=== PATIENT | female | born 1980 | race Caucasian/White ===

== ENCOUNTER → 2018-06-07 08:58 | Outpatient (CLI) | payer OTHER, SELFPAY ==
--- NOTE | 2018-06-07 09:07 | US_ITS ---
US gallbladder COMPARISON: None available HISTORY:Chest pain and back pain Sagittal, transverse and decubitus imaging of the gallbladder was performed. GALLBLADDER -the gallbladder is normal in size and no definite gallstones are seen. There is a small amount biliary sludge near the neck of the gallbladder. The gallbladder wall is normal thickness. The liver is normal size and shows overall increased echogenicity suggesting mild diffuse fatty infiltration. The portal vein is normal caliber. Right kidney measures 10.6 x 4.4 x 5.9 cm and appears sonographically normal. The pancreas appears normal. . IMPRESSION: Mild diffuse hepatic steatosis along with biliary sludge, no definite gallstones identified
[2018-06-07 09:17] LABS: Basophils % 0.6 % (0.1-2.0); Eosinophils # 0.2 K/mm3 (0.0-0.4); Hematocrit 44.3 % (37.0-47.0); Lymphocytes % 29.9 % (10-50); Mean Corpuscular HGB Conc 31.6 g/dL (31.8-35.4); Mean Corpuscular Hemoglobin 30.9 pg (27.0-31.2); Mean Corpuscular Volume 97.8 fl (81-99); Mean Platelet Volume 7.4 fl (7.4-10.4); Monocytes # 0.4 K/mm3 (0.1-1.0); Monocytes % 5.8 % (1.7-9.3); Neutrophils # 4.1 K/mm3 (1.8-7.8); Neutrophils % 60.8 % (37.0-80.0); Platelet Count 269 K/mm3 (142-424); Red Blood Count 4.53 M/mm3 (4.20-5.40); Red Cell Distribution Width 12.6 % (11.5-17.5); White Blood Count 6.7 K/mm3 (4.8-10.8)
[2018-06-07 09:19] LABS: Alanine Aminotransferase 26 U/L (12-78); Albumin Level 3.7 gm/dL (3.4-5.0); Albumin/Globulin Ratio 0.9 (1.1-1.8); Alkaline Phosphatase 52 U/L (46-116); Amylase 38 U/L (25-115); Anion Gap 11.3 mEq/L (5-15); Aspartate Amino Transferase 10 U/L (15-37); Bilirubin,Total 0.4 mg/dL (0.2-1.0); Blood Urea Nitrogen 19 mg/dL (7-18); Calcium 8.7 mg/dL (8.5-10.1); Carbon Dioxide 28 mmol/L (21.0-32.0); Chloride 104 mmol/L (98-107); Creatinine,Serum 0.93 mg/dL (0.55-1.02); Estimated Glomerular Filt Rate 69 ml/min (>60); GFR (African American) 83 ML/MIN (>60); Glucose 102 mg/dL (74-106); Lipase 90 u/L (73-393); Potassium 4.3 mmoL/L (3.5-5.1); Sodium 139 mmol/L (136-145); Total Protein,Serum 7.7 gm/dL (6.4-8.2)
== END ==
PROVIDERS: Visit Provider Physician Assistant
DX: R07.9 Chest pain, unspecified (principal); R10.9 Unspecified abdominal pain
CPT/HCPCS: 36415; 76705; 80053; 82150; 83690; 85025

== ENCOUNTER → 2018-06-11 12:18 | Outpatient (CLI) | payer OTHER, SELFPAY ==
--- NOTE | 2018-06-11 12:21 | NM_ITS ---
NM hepatobiliary wo pharm HISTORY: ITS.REASON: right upper quad pain/chest pain ORDERING PHYSICIAN: Luis Manuel Angel MD PATIENT AGE: 37 years COMPARISON: None DOSE: 8.45 mCi technique: Fatty meal with ensure. No pain reported with fatty meal. FINDINGS: Homogeneous activity is present within the hepatic parenchyma. Activity is present in the gallbladder by 60 minutes. Activity is present in the small bowel by 30 minutes. The gallbladder ejection fraction is calculated to be 14 % The patient did not report pain or other symptoms during the fatty meal. IMPRESSION: 1. No evidence of cystic or common duct obstruction. 2. Low gallbladder ejection fraction of 14%. 3. Slight delay in gallbladder visualization. This could be seen with chronic inflammatory changes of the cystic duct. Correlation with clinical parameters needed.
== END ==
PROVIDERS: PCP Family Medicine; Visit Provider Surgery
DX: R10.11 Right upper quadrant pain (principal); R07.9 Chest pain, unspecified
CPT/HCPCS: 78226; A9537

== ENCOUNTER → 2019-01-24 10:50 | Outpatient (CLI) | payer OTHER, SELFPAY ==
--- NOTE | 2019-01-24 10:51 | US_ITS ---
PROCEDURE: US BREAST RT COMPLETE CLINICAL INDICATION: US Right Breast- Lump COMPARISON: No exams were available for comparison FINDINGS: Palpable areas reported at 10 o'clock. General survey is performed of the right breast. A hypoechoic nodule is present at 8 o'clock at 4 mm suggesting a cyst. At 9 o'clock there is a tubular 8 x 3 mm cystic area. No nodule evident that would correspond to the area of palpable concern. 2 cm node is present in the right axilla. IMPRESSION: No sonographic abnormality detected at the area of palpable concern. Probable cysts at 8 o'clock and 9 o'clock. If there indeed a palpable nodule then, mammogram may be of further value Dictated by: Delmar Aroryo MD 01/31/2019 18:52 Signed by: <Electronically signed by Delmar Arroyo MD in [place]> 01/31/2019 18:52
== END ==
PROVIDERS: PCP Family Medicine; Visit Provider Nurse Practitioner Obstetrics & Gynecology
DX: N63.10 Unspecified lump in the right breast, unspecified quadrant (principal)
CPT/HCPCS: 76641

== ENCOUNTER → 2019-06-13 10:36 | Outpatient (CLI) | payer OTHER, SELFPAY ==
--- NOTE | 2019-06-13 10:44 | XR_ITS ---
PROCEDURE: XR CHEST 2V CLINICAL HISTORY: short of breath COMPARISON: No exams were available for comparison FINDINGS: The cardiomediastinal silhouette and pulmonary vascularity are within normal limits. There is some patchy infiltrate in the right perihilar region. There is a four mm nodular opacity in the left upper lobe medially overlying the medial aspect of the left 5th rib. This may be due to a granuloma. Stability may be confirmed with follow-up. No acute bony abnormalities. IMPRESSION: Right perihilar infiltrate. 4 mm left upper lobe nodule. Follow-up suggested to confirm stability Dictated by: Delmar Arroyo MD 06/13/2019 17:08 Electronically signed by Delmar Arroyo MD in [place] 06/13/2019 17:08
== END ==
PROVIDERS: PCP Family Medicine; Visit Provider Urology
DX: R06.02 Shortness of breath (principal)
CPT/HCPCS: 71046

== ENCOUNTER → 2019-07-20 14:06 | Outpatient (CLI) | payer OTHER, SELFPAY ==
--- NOTE | 2019-07-20 14:13 | XR_ITS ---
PROCEDURE: XR CHEST 2V CLINICAL HISTORY: pulmonary nodule COMPARISON: XR CHEST 2V from 06/13/2019 FINDINGS: The cardiomediastinal silhouette and pulmonary vascularity are within normal limits. The lungs are clear without infiltrates, suspicious nodules, or pleural effusions. There is a stable appearing nodular density in the medial aspect of left upper lobe probably related to a granuloma unchanged. No acute bony anomaly. IMPRESSION: No change with no acute finding Dictated by: Delmar Arroyo MD 07/20/2019 15:27 Electronically signed by Delmar Arroyo MD in [place] 07/20/2019 15:27
== END ==
PROVIDERS: PCP Family Medicine; Visit Provider Urology
DX: R91.1 Solitary pulmonary nodule (principal)
CPT/HCPCS: 71046

== ENCOUNTER 2019-07-26 02:40 | Observation (INO) ==
[2019-07-26 03:03] LABS: Microscopic, Urine URINE MICROSCOPIC (MICROSCOPIC)
[2019-07-26 03:05] LABS: Appearance,Urine CLEAR (Clear); Bilirubin,Urine Negative (Negative); Blood, Urine 1+ (Negative); Color,Urine YELLOW (Yellow); Glucose,Urine (UA) Negative (Negative); Ketones,Urine Negative (Negative); Leukocyte Esterase,Urine Negative (Negative); Protein,Urine Negative (Negative); Specific Gravity, Urine 1.025 (1.005-1.030); Urobilinogen,Urine 0.2 EU/dl (0.2)
[2019-07-26 03:13] LABS: Basophils % 0.4 % (0.1-2.0); Eosinophils # 0.2 K/mm3 (0.0-0.4); Eosinophils % 1.8 % (0.1-12.0); Hematocrit 42.7 % (37.0-47.0); Hemoglobin 14.3 g/dL (12.2-16.2); Lymphocytes # 1.8 K/mm3 (0.7-4.5); Lymphocytes % 17.9 % (10-50); Mean Corpuscular HGB Conc 33.5 g/dL (31.8-35.4); Mean Corpuscular Volume 96.2 fl (81-99); Monocytes # 0.4 K/mm3 (0.1-1.0); Monocytes % 3.8 % (1.7-9.3); Neutrophils # 7.4 K/mm3 (1.8-7.8); Platelet Count 282 K/mm3 (142-424); Red Blood Count 4.44 M/mm3 (4.20-5.40); Red Cell Distribution Width 12.6 % (11.5-17.5); White Blood Count 9.8 K/mm3 (4.8-10.8)
[2019-07-26 03:31] LABS: Albumin/Globulin Ratio 1.1 (1.1-1.8); Anion Gap 13.2 mEq/L (5-15); Bilirubin,Total 0.5 mg/dL (0.2-1.0); C-Reactive Protein 0.5 mg/dL (0.0-0.9); Globulin 3.6 gm/dl (1.3-3.2); Total Protein,Serum 7.6 g/dL (6.4-8.2)
[2019-07-26 03:47] LABS: Erythrocyte Sedimentation Rate 17 mm/hr (0-20)
[2019-07-26 03:58] LABS: Amorphous Sediment,Urine 1+ /lpf; Bacteria,Urine 1+ /lpf
--- NOTE | 2019-07-26 04:18 | Emergency Department Note ---
ED Disposition Clinical Impression: Cholecystitis Disposition: Admitted as Observation Condition on Discharge: Good - Critical Care Critical Care Time: No Attestation: On 07/26/19, the high probability of a clinically significant, sudden or life threatening deterioration of the following system(s) required my full and direct attention, intervention and personal management. The time I documented below is in addition to time spent performing reported procedures but includes the following listed in this critical care notation. Medical Decision Making - Medical Records Medical records reviewed: Yes: I reviewed the patient's medical records. - Radames Inquiry Pt receiving controlled substance: No Vital Signs: 07/26/19 02:53 07/26/19 05:40 Temperature 98.1 F Temperature Source Oral Pulse Rate [Right] 90 71 Respiratory Rate 16 Blood Pressure [Right Arm] 146/70 H 105/63 L Blood Pressure Mean [Right Arm] 95 77 Blood Pressure Source [Right Arm] Automatic Cuff Automatic Cuff Blood Pressure Position [Right Arm] Sitting Sitting 02 Sat by Pulse Oximetry 95 99 Oxygen Delivery Method Room Air - Lab Data Lab results reviewed: Yes: I reviewed the patient's lab results. Lab Results 07/26/19 02:46: Urine Color Yellow, Urine Appearance Clear, Urine pH 7.0, Ur Specific [place] 1.025, Urine Protein Negative, Urine Glucose (UA) Negative, Urine Ketones Negative, Urine Blood 1+, Urine Nitrate Negative, Urine Bilirubin Negative, Urine Urobilinogen 0.2, Ur Leukocyte Esterase Negative, Urine RBC 5-10, Urine WBC 3-5, Ur Squamous Epith Cells 5-10, Amorphous Sediment 1+, Urine Bacteria 1+ 07/26/19 02:46: Urine HCG, Qual Negative 07/26/19 03:05: WBC 9.8, RBC 4.44, Hgb 14.3, Hct 42.7, MCV 96.2, MCH 32.2 H, MCHC 33.5, RDW 12.6, Plt Count 282, MPV 8.0, Neut % (Auto) 76.0, Lymph % (Auto) 17.9, [place] % (Auto) 3.8, Eos % (Auto) 1.8, Baso % (Auto) 0.4, Neut # (Auto) 7.4, Lymph # (Auto) 1.8, [place] # (Auto) 0.4, Eos # (Auto) 0.2, Baso # (Auto) 0.0, ESR 17 07/26/19 03:05: Sodium 143, Potassium 4.2, Chloride 108 H, Carbon Dioxide 26, Anion Gap 13.2, BUN 16, Creatinine 0.92, Estimated Creat Clear 128, Estimated GFR 69, Est GFR ( Amer) 84, Glucose 111 H, Calcium 9.0, Total Bilirubin 0.5, AST 8 L, ALT 22, Alkaline Phosphatase 50, C-Reactive Protein 0.5, Total Protein 7.6, Albumin 4.0, Globulin 3.6 H, Albumin/Globulin Ratio 1.1, Amylase 34, Lipase 76 07/26/19 03:05: Lactate 1.1 Result diagrams: 07/26/19 03:05 07/26/19 03:05 Orders (Tests/Meds): ED MEDICATIONS Generic Name Dose Route Start Last Admin Trade Name Bulmaro PRN Reason Stop Dose Admin Sodium Chloride 1,000 mls @ 999 mls/hr 07/26/19 03:00 07/26/19 03:42 Sod Chlor 0.9% 1000ml Bag IV 07/26/19 04:00 999 mls/hr .Q1H1M CARMEN Administration Iohexol 75 ml 07/26/19 05:47 07/26/19 05:48 Rad-Omnipaque 350 100ml Bottle IV 07/26/19 05:48 75 ml ONCE ONE Administration Sodium Chloride 10 ml 07/26/19 05:47 07/26/19 05:48 Rad-Saline Flush 10ml Syringe IV 07/26/19 05:48 10 ml ONCE ONE Administration Discontinued Medications Generic Name Dose Route Start Last Admin Trade Name Seq PRN Reason Stop Dose Admin Famotidine 20 mg 07/26/19 03:01 07/26/19 03:43 Pepcid 20mg/2ml Vial IV 07/26/19 03:02 20 mg ONCE ONE Administration Metoclopramide HCl 10 mg 07/26/19 03:01 07/26/19 03:43 Reglan 10mg/2ml Vial IVP 07/26/19 03:02 10 mg ONCE ONE Administration Morphine Sulfate 4 mg 07/26/19 03:01 07/26/19 03:43 Morphine 4mg/Ml Syringe IV 07/26/19 03:02 4 mg ONCE ONE Administration Ondansetron HCl 4 mg 07/26/19 03:01 07/26/19 03:43 Zofran 4mg/2ml Vial IV 07/26/19 03:02 4 mg ONCE ONE Administration ORDERS Category Date Time Status CT abdomen pelvis w con Stat Cat Scan 07/26/19 02:59 Taken US gallbladder Stat Exams 07/26/19 04:40 Taken - CT Data CT Scan: Abdomen, Pelvis Time Received: 06:[address] Reviewed: Yes: I have viewed the radiologist's interpretation Preliminary Findings: Normal/NAD - US Data US Images: Gallbladder ED US Reviewed: Yes: I discussed the US results w/the radiologist Preliminary Findings: Gall Bladder Stones - Physician Consults Physician Consulted: jared Reason -: Admission Nausea/Vomiting/Diarrhea HPI - General Chief complaint: Abdominal Pain Stated complaint: Pain in back vomiting Time Seen by Provider: 07/26/19 03:30 Mode of Arrival: Ambulatory Source of Information: Patient, Relative Limitations: No Limitations Description of Symptoms (Recalled from ER Triage Doc. by RN): RUQ pain radiating to right shoulder blade. - History of Present Illness HPI Narrative: acute rt upper abd pain with known hx of gb disease - MD complaint: nausea, vomiting, abdominal pain Onset (ago): hour(s) Associated Abdominal Pain: Yes Location of pain: RUQ Severity: severe Quality: sharp Consistency: colicky Associated symptoms: denies other symptoms - Related Data Home Medications Medication Instructions Recorded Confirmed No Known Home Medications 07/26/19 07/26/19 Allergies Allergy/AdvReac Type Severity Reaction Status Date / Time No Known Allergies Allergy Verified 07/26/19 02:57 [facility] History - Hepatitis A Screen Drug use history?: No High risk sexual behaviors?: No History of sexually transmitted infection?: No Currently employed?: No Childcare worker?: No Do you have indoor plumbing?: Yes Do you have electricity?: Yes Attestation statement:: This patient has been screened for Hepatitis A risk factors. I have reviewed the patient's past medical history: Yes Medical History: Denies:: Diabetes Mellitus Type 1, Diabetes Mellitus Type 2 Amputation: No Fractures: No - Social History Smoking Status: Never smoker Alcohol Intake: never Occupational Status: employed Housing: [facility] Family Hx:: No significant family history ROS Obtained: Yes All systems reviewed & no additional complaints - Constitutional Constitutional: Denies fever(s) - Eyes Eyes: Denies change in vision - ENT Ears, Nose, Mouth, and Throat: Denies sore throat - Cardiovascular Cardiovascular: Denies chest pain - Respiratory Respiratory: No cough - Gastrointestinal Gastrointestingal: Reports: as per HPI, abdominal pain, nausea, vomiting. Denies: black, tarry stools - Genitourinary Female Genitourinary: Denies hematuria - Musculoskeletal Musculoskeletal: Denies joint pain - Integumentary/Breasts Skin/Breast: Denies rash - Neurologic Neurologic: Denies seizure-like activity Physical Exam - General General appearance: alert, obese - Head Head exam: atraumatic - Eye Eye exam: Present: PERRL, EOMI. Absent: scleral icterus - ENT ENT exam: Present: mucous membranes moist - Neck Neck exam: Present: trachea midline - Respiratory Respiratory exam: Present: normal lung sounds bilaterally. Absent: respiratory distress - Cardiovascular Cardiovascular exam: Present: regular rate. Absent: systolic murmur - Abdominal Exam Abdominal exam: Present: soft, tenderness, Moon's sign Abdominal tenderness: Present: RUQ, moderate - Extremities Exam Extremities exam: Present: full ROM - Neurological Exam Neurological exam: Present: alert, oriented X3, CN II-XII intact - Psychiatric Psychiatric exam: Present: normal affect - Skin Skin exam: Absent: rash
--- NOTE | 2019-07-26 06:53 | History & Physical Report ---
HPI HPI: Patient is a pleasant 38-year-old healthy female. She has a known history of gallbladder disease for at least 1 year. She had previous symptoms of intermittent sporadic right upper quadrant pain radiating into her chest. She did have a HIDA scan about 1 year ago which revealed diminished ejection fraction. However, her symptoms were relatively controlled and sporadic and she did not pursue surgery. Yesterday she states that she begin feeling ill with some mild abdominal discomfort and this progressed to quite severe right upper quadrant pain radiating to her shoulder. She had presented to the emergency department and underwent work-up which included ultimately ultrasound of the gallbladder revealing gallstone in the neck of the gallbladder. Due to the severity of her symptoms and sonographic findings plan was made for inpatient admission. [facility] History I have reviewed the patient's past medical history: Yes Medical History: Denies:: Diabetes Mellitus Type 1, Diabetes Mellitus Type 2 *Have you ever received a pneumonia vaccine?: No *Have you received a flu vaccine this season?: Yes Amputation: No Fractures: No - *Social History Educational Level: Attended College Smoking Status: Never smoker Alcohol Intake: never *Occupational Status:: employed Housing: [facility] *Travel in the last 8 weeks: None Family Hx:: Cancer, Coronary Artery Disease, Diabetes, Heart Attack, Stroke Review of Systems - Review of Systems Review of systems:: pertinent systems reviewed and negative unless documented below - *Neurologic Denies seizure-like activity Meds Home Medications Medication Instructions Recorded Confirmed Type No Known Home Medications 07/26/19 07/26/19 History Allergies Allergy/AdvReac Type Severity Reaction Status Date / Time No Known Allergies Allergy Verified 07/26/19 02:57 Exam Vital signs and Labs for Last 24 Hours: Temp Pulse Resp BP Pulse Ox 97.7 F 60 16 138/78 98 07/26/19 06:25 07/26/19 06:25 07/26/19 06:25 07/26/19 06:25 07/26/19 06:25 Laboratory Results - last 24 hr 07/26/19 02:46: Urine Color Yellow, Urine Appearance Clear, Urine pH 7.0, Ur Specific [place] 1.025, Urine Protein Negative, Urine Glucose (UA) Negative, Urine Ketones Negative, Urine Blood 1+, Urine Nitrate Negative, Urine Bilirubin Negative, Urine Urobilinogen 0.2, Ur Leukocyte Esterase Negative, Urine RBC 5- 10, Urine WBC 3-5, Ur Squamous Epith Cells 5-10, Amorphous Sediment 1+, Urine Bacteria 1+ 07/26/19 02:46: Urine HCG, Qual Negative 07/26/19 03:05: WBC 9.8, RBC 4.44, Hgb 14.3, Hct 42.7, MCV 96.2, MCH 32.2 H, MCHC 33.5, RDW 12.6, Plt Count 282, MPV 8.0, Neut % (Auto) 76.0, Lymph % (Auto) 17.9, [place] % (Auto) 3.8, Eos % (Auto) 1.8, Baso % (Auto) 0.4, Neut # (Auto) 7.4, Lymph # (Auto) 1.8, [place] # (Auto) 0.4, Eos # (Auto) 0.2, Baso # (Auto) 0.0, ESR 17 07/26/19 03:05: Sodium 143, Potassium 4.2, Chloride 108 H, Carbon Dioxide 26, Anion Gap 13.2, BUN 16, Creatinine 0.92, Estimated Creat Clear 128, Estimated GFR 69, Est GFR ( Amer) 84, Glucose 111 H, Calcium 9.0, Total Bilirubin 0.5, AST 8 L, ALT 22, Alkaline Phosphatase 50, C-Reactive Protein 0.5, Total Protein 7.6, Albumin 4.0, Globulin 3.6 H, Albumin/Globulin Ratio 1.1, Amylase 34, Lipase 76 07/26/19 03:05: Lactate 1.1 I & O for Last 24 hours: Intake & Output 07/23/19 07/24/19 07/25/19 07/26/19 11:59 11:59 11:59 11:59 Intake Total 1085 / 1085 Balance 1085 / 1085 Weight 203 lb 3 oz - *Routine HEENT Exam Head: Present: normocephalic Eye: Present: EOMI, PERRL ENT: Present: mucous membranes moist - *Routine Neck Exam Present: supple. Absent: lymphadenopathy - *Routine Respiratory Exam Present: CTA bilaterally - *Routine Cardiovascular Exam Present: RRR - *Routine Abdominal Exam Present: soft, normoactive bowel sounds, tenderness - *Routine Extremities Exam Absent: cyanosis, clubbing, edema - *Routine Skin Exam Present: warm. Absent: rash - *Routine Neurological Exam Present: alert, oriented X3 - Detailed Eye Exam Eyelids: Left normal inspection Results - Results Lab Results Last 24 Hours:: Laboratory Results - last 24 hr 07/26/19 02:46: Urine Color Yellow, Urine Appearance Clear, Urine pH 7.0, Ur Specific [place] 1.025, Urine Protein Negative, Urine Glucose (UA) Negative, Urine Ketones Negative, Urine Blood 1+, Urine Nitrate Negative, Urine Bilirubin Negative, Urine Urobilinogen 0.2, Ur Leukocyte Esterase Negative, Urine RBC 5- 10, Urine WBC 3-5, Ur Squamous Epith Cells 5-10, Amorphous Sediment 1+, Urine Bacteria 1+ 07/26/19 02:46: Urine HCG, Qual Negative 07/26/19 03:05: WBC 9.8, RBC 4.44, Hgb 14.3, Hct 42.7, MCV 96.2, MCH 32.2 H, MCHC 33.5, RDW 12.6, Plt Count 282, MPV 8.0, Neut % (Auto) 76.0, Lymph % (Auto) 17.9, [place] % (Auto) 3.8, Eos % (Auto) 1.8, Baso % (Auto) 0.4, Neut # (Auto) 7.4, Lymph # (Auto) 1.8, [place] # (Auto) 0.4, Eos # (Auto) 0.2, Baso # (Auto) 0.0, ESR 17 07/26/19 03:05: Sodium 143, Potassium 4.2, Chloride 108 H, Carbon Dioxide 26, Anion Gap 13.2, BUN 16, Creatinine 0.92, Estimated Creat Clear 128, Estimated GFR 69, Est GFR ( Amer) 84, Glucose 111 H, Calcium 9.0, Total Bilirubin 0.5, AST 8 L, ALT 22, Alkaline Phosphatase 50, C-Reactive Protein 0.5, Total Protein 7.6, Albumin 4.0, Globulin 3.6 H, Albumin/Globulin Ratio 1.1, Amylase 34, Lipase 76 07/26/19 03:05: Lactate 1.1 Assessment and Plan - Assessment and plan all Dx Assessment and Plan for all problems:: Patient has symptoms of ongoing clinical cholecystitis. Options were discussed with her. She would like to pursue surgery. Arrangements will be made.
--- NOTE | 2019-07-26 07:37 | Pharmacy Consult Notes ---
[facility] Pharmacy VTE Monitoring - Patient Demographics Admission date: 07/26/19 Report Date: 07/26/19 Time: 07:37 Allergies/Adverse Reactions: Patient Allergies No Known Allergies Allergy (Verified 07/26/19 02:57) Height: 1.57 m Weight: 92.164 kg Patient Problems: Current Active Problems Cholecystitis (Acute) - VTE Risk Labs: VTE Related Lab Results Hgb 14.3 g/dL (12.2-16.2) 07/26/19 03:05 Hct 42.7 % (37.0-47.0) 07/26/19 03:05 Plt Count 282 K/mm3 (142-424) 07/26/19 03:05 BUN 16 mg/dL (7-18) 07/26/19 03:05 Creatinine 0.92 mg/dL (0.55-1.02) 07/26/19 03:05 Estimated Creat Clear 128 mL/min (50-200) 07/26/19 03:05 VTE Score: 0 VTE Risk Level: Very Low Risk - Prophylaxis VTE Prophylaxis Ordered?: Yes Types of VTE Prophylaxis: TEDS Knee High Location of Applied Device: Bilateral Lower Extremeties
--- NOTE | 2019-07-26 11:13 | Progress Note ---
[facility] Anesthesia Checklist - Patient Identification Patient Identification: Arm Band - Structural Data Admitted From: Inpatient Planned Operative Procedure/s: laparoscopic cholecystectomy Consent for Planned Operative Procedure(s) Verified: Yes Verified Documents: Surgical Consent, History and Physical - NPO Status Verified Time NPO: 00:00 - Additional verifications Anesthesia Reactions: No - Airway Assessment C-Spine Mobility Assessed: Yes (mp2) TMJ Mobility Assessed: Yes Dentition: Good Dentition - Neurological Assessment Level of Consciousness: Awake, Alert - Anesthesia Plan Anesthesia Risk discussed: Yes Anesthesia Plan: Verified ASA Class: II Anesthesia Type: General [facility] History Medical History: Denies:: Diabetes Mellitus Type 1, Diabetes Mellitus Type 2 *Have you ever received a pneumonia vaccine?: No *Have you received a flu vaccine this season?: Yes Anesthesia experience/problems:: nac Other Surgeries: Yes: Other (wisdom teeth) Amputation: No Fractures: No - *Social History Educational Level: Attended College Smoking Status: Never smoker Alcohol Intake: never Substance Use Type: denies use *Occupational Status:: employed Housing: [facility] *Travel in the last 8 weeks: None Family Hx:: Cancer, Coronary Artery Disease, Diabetes, Heart Attack, Stroke
--- NOTE | 2019-07-26 12:07 | Operative Note ---
Date of procedure: 07/26/19 Pre-op Diagnosis:: Symptomatic cholelithiasis, intractable (clinical acute cholecystitis) Post-op Diagnosis:: Same Procedure performed:: Laparoscopic cholecystectomy Surgeon:: Luis Manuel Angel MD AUTOMOTIVE PAINT TECHNICIAN:: Lane Gilliland Anesthesia: GETA Estimated blood loss (mL): 10 Clinical Note:: Patient is a pleasant 38-year-old healthy female. She has a known history of gallbladder disease for at least 1 year. She had previous symptoms of intermittent sporadic right upper quadrant pain radiating into her chest. She did have a HIDA scan about 1 year ago which revealed diminished ejection fraction. However, her symptoms were relatively controlled and sporadic and she did not pursue surgery. Yesterday she states that she begin feeling ill with some mild abdominal discomfort and this progressed to quite severe right upper quadrant pain radiating to her shoulder. She had presented to the emergency department and underwent work-up which included ultimately ultrasound of the gallbladder revealing gallstone in the neck of the gallbladder. Due to the severity of her symptoms which were intractable in nature and sonographic fin dings plan was made for inpatient admission for cholecystectomy. Operative findings:: She had a somewhat thickened, somewhat distended mildly edematous gallbladder. There was a moderate stones within the gallbladder. Operative note:: Patient was taken to the operating room. She was given preoperative intravenous antibiotics. In the operating room she was placed in a supine position. General anesthesia was induced via endotracheal tube. Abdomen was prepped and draped in the standard surgical fashion. Subumbilical skin incision was made and while performing abdominal wall lift Veress needle was inserted. CO2 pneumoperitoneum was achieved to 15 mmHg. 11 mm optical trocar was inserted at the umbilicus. She was positioned in reverse Trendelenburg left side down. A couple of 5 mm trochars were inserted in the right upper abdomen. 10 mm trocar was inserted in the epigastrium. Gallbladder was identified and grasped retracted anteriorly over the dome of the liver. Gallbladder was somewhat edematous and mildly thickened. Infundibulum/Pretty's pouch of the gallbladder was grasped and retracted anterior laterally. The visceral peritoneum over the neck of the gallbladder was bluntly incised. Dissection was carried out clearly identifying the cystic duct and cystic artery. The cystic artery was cauterized initially with ENMANUEL ultrasonic harmonic heather and divided. Cystic duct was isolated, multiply clipped, and divided sharply. Gallbladder was dissected free from the liver in a retrograde fashion using ENMANUEL ultrasonic harmonic heather. Gallbladder was placed within an Endo Catch retrieval device and removed from the peritoneal cavity via the umbilical trocar site. Gallbladder fossa was inspected for hemostasis which was assured. Limited irrigation was carried out. Trochars were removed as CO2 pneumoperitoneum was evacuated. Fascia at the umbilicus was closed with a 0 Vicryl suture. Local anesthetic was infiltrated into all skin incisions. Skin incisions were closed with 4-0 Monocryl in a subcuticular fashion. Steri-Strips and dressings were applied. Condition: stable Disposition: PACU Specimens:: Gallbladder and contents Complications:: None immediately apparent
--- NOTE | 2019-07-26 12:10 | Progress Note ---
[facility] Anesthesia Record Part I Intake, IV Amount: 1,300 Estimated blood loss (mL): 10 Urine output (mL): 0 Blood Pressure: 122/74 SaO2: 95 Pulse Rate: 67 Respiratory Rate: 16 Temperature: 97.4 F Patient is:: Drowsy, Stable Stable to PACU at:: 12:05
--- NOTE | 2019-07-27 06:50 | Progress Note ---
Subjective Patient reports: feels better Narrative: Patient is doing well this morning. She did have some significant soreness and pain with ambulating yesterday evening but this is improved today. She has tolerated diet. Exam Vital signs and Labs for Last 24 Hours: Temp Pulse Resp BP Pulse Ox 97.9 F 67 18 130/74 96 07/27/19 04:00 07/27/19 04:00 07/27/19 04:00 07/27/19 04:00 07/27/19 04:00 I & O for Last 24 hours: Intake & Output 07/24/19 07/25/19 07/26/19 07/27/19 11:59 11:59 11:59 11:59 Intake Total 1085 / 1085 3561 / 3561 Output Total 825 / 825 Balance 1085 / 1085 2736 / 2736 Weight 203 lb 3 oz 205 lb - *Routine Abdominal Exam Present: soft Progress Note: A&P Assessment and Plan for All Diagnoses:: Plan for discharge home today.
--- NOTE | 2019-07-27 06:53 | Discharge Summary ---
General - General Admission date:: 07/26/19 Discharge date: 07/27/19 HPI HPI: Patient is a pleasant 38-year-old healthy female. She has a known history of gallbladder disease for at least 1 year. She had previous symptoms of intermittent sporadic right upper quadrant pain radiating into her chest. She did have a HIDA scan about 1 year ago which revealed diminished ejection fraction. However, her symptoms were relatively controlled and sporadic and she did not pursue surgery. Yesterday she states that she begin feeling ill with some mild abdominal discomfort and this progressed to quite severe right upper quadrant pain radiating to her shoulder. She had presented to the emergency department and underwent work-up which included ultimately ultrasound of the gallbladder revealing gallstone in the neck of the gallbladder. Due to the severity of her symptoms which were intractable in nature and sonographic findings plan was made for inpatient admission for cholecystectomy. Hospital Course Hospital Course: Patient was admitted in the early head start director hours of 07/26/2018 with findings consistent with clinical cholecystitis. Arrangements were made for operative intervention. Later that day she underwent laparoscopic cholecystectomy. She was found to have a slightly edematous thickened gallbladder with gallstones. Please see operative dictation for complete details. Postoperatively she was advanced to a bland diet. She tolerated this without difficulty. She did have some significant soreness and abdominal discomfort initially with ambulation after surgery. This had resolved overnight. She was tolerating a bland diet without difficulty. She felt much better. Arrangements were made for discharge home on postoperative day #1. Objective Vital signs: Temp Pulse Resp BP Pulse Ox 97.9 F 67 18 130/74 96 07/27/19 04:00 07/27/19 04:00 07/27/19 04:00 07/27/19 04:00 07/27/19 04:00 Discharge Plan - Patient Discharge Instructions ACTIVITY: No heavy lifting DIET: advance to your usual diet Patient Instructions: DI for Cholecystectomy, DI for Surgical Site Infection, Cholecystectomy -- Laparoscopic Surgery - Follow up Plan Follow up with: Luis Manuel Angel MD [Staff Physician] - 08/12/19 Disposition: Home, Self-[facility] Medications: Home Medications Medication Instructions Recorded Confirmed Type No Known Home Medications 07/26/19 07/26/19 History Prescriptions/Medication Reconciliation: Continued No Known Home Medications - Problem Reconciliation Problems Reviewed?: Yes
--- NOTE | 2019-07-27 09:25 | Progress Note ---
[facility] Anesthesia Record Part II Discharge Time: 12:35 Destination: Medical Surgical Department PACU nurse assessment reviewed?: Yes Patient Condition:: Good Anesthesia Complications:: None Swallowing reflex intact?: Yes Cyanosis?: No Blood Pressure: 118/66 Pulse Rate: 68 Temperature: 98.6 F Mental Status: Alert & Oriented Pain level:: 1 Nausea and/or vomitting:: None Intake, IV Amount: 25
== END 2019-07-27 08:27 | disposition home or self-care (01) ==
LOC: 2ND 02:40 → ER 02:40 → 2ND 06:19
PROVIDERS: ADMIT Surgery; ATTEND Surgery
DX: K80.20 Calculus of gallbladder without cholecystitis without obstruction
CPT/HCPCS: 74177; 76705; 80053; 81001; 81025; 82150; 83605; 83690; 85025; 85651; 86140; 96365; 96375; 99284; G0378; J2405; J2710; Q9967

== ENCOUNTER → 2020-09-18 14:53 | Outpatient (CLI) | payer OTHER, SELFPAY ==
[2020-09-18 16:16] LABS: Triiodothryronine (T3) Uptake 30 % (23.5-40.5)
[2020-09-18 16:17] LABS: Free Thyroxine Index 2.4 ug/dL (5.93-13.13)
== END ==
PROVIDERS: Visit Provider Nurse Practitioner Family
DX: R94.6 Abnormal results of thyroid function studies (principal)
CPT/HCPCS: 36415; 84436; 84443; 84479

== ENCOUNTER → 2020-10-02 15:08 | Outpatient (POV) | payer OTHER, SELFPAY | PROVIDERS: Visit Provider Dermatology | DX: Z00.00 Encounter for general adult medical examination without abnormal findings (principal) ==

== ENCOUNTER → 2021-08-06 14:26 | Outpatient (POV) | payer OTHER, SELFPAY | PROVIDERS: Visit Provider Dermatology | DX: Z00.00 Encounter for general adult medical examination without abnormal findings (principal) ==

== ENCOUNTER → 2023-01-19 15:11 | Outpatient (CLI) | payer OTHER, SELFPAY ==
[2023-01-19 15:42] LABS: Hemoglobin A1C 5.1 % (4.0-6.0)
[2023-01-19 15:54] LABS: Anion Gap 13.4 mEq/L (5-15); Blood Urea Nitrogen 17 mg/dl (7-17); Calcium 8.8 mg/dl (8.4-10.2); Carbon Dioxide 25 mmol/L (22.0-30.0); Chloride 105 mmol/L (98-107); Estimated Glomerular Filt Rate 79 ml/min (>60); GFR (African American) 96 ML/MIN (>60); Glucose 99 mg/dl (74-100); Potassium 4.4 mmoL/L (3.5-5.1); Sodium 139 mmol/L (136-145)
== END ==
LOC: LAB 15:11
PROVIDERS: PCP Nurse Practitioner Family; Visit Provider Nurse Practitioner Family
DX: E66.9 Obesity, unspecified (principal); Z68.39 Body mass index [BMI] 39.0-39.9, adult
CPT/HCPCS: 36415; 80048; 83036

== ENCOUNTER 2023-02-23 10:51 | Outpatient (CLI) | payer OTHER, SELFPAY ==
[2023-02-23 11:22] LABS: MANUAL DIFFERENTIAL MANUAL DIFFERENTIAL (MANUAL DIFF); Microscopic, Urine URINE MICROSCOPIC (MICROSCOPIC)
[2023-02-23 11:37] LABS: Basophils # 0.1 K/mm3 (0-0.2); Basophils % 0.7 % (0.1-2.0); Eosinophils # 0.4 K/mm3 (0.0-0.4); Eosinophils % 2.5 % (0.1-12.0); Hematocrit 55.1 % (37.0-47.0); Hemoglobin 17.8 g/dL (12.2-16.2); Lymphocytes # 1.8 K/mm3 (0.7-4.5); Lymphocytes % 12.9 % (10-50); Mean Corpuscular HGB Conc 32.3 g/dL (31.8-35.4); Mean Corpuscular Hemoglobin 30.9 pg (27.0-31.2); Mean Corpuscular Volume 95.8 fl (81-99); Neutrophils # 10.9 K/mm3 (1.8-7.8); Neutrophils % 76.8 % (37.0-80.0); Platelet Count 398 K/mm3 (142-424); Red Blood Count 5.75 M/mm3 (4.20-5.40); Red Cell Distribution Width 12.4 % (11.5-17.5); White Blood Count 14.1 K/mm3 (4.8-10.8)
[2023-02-23 11:59] LABS: Appearance,Urine CLEAR (Clear); Blood, Urine 2+ (Negative); Color,Urine YELLOW (Yellow); Glucose,Urine (UA) Negative (Negative); Ketones,Urine TRACE (Negative); Leukocyte Esterase,Urine 1+ (Negative); Nitrate,Urine Negative (Negative); Protein,Urine 2+ (Negative); Specific Gravity, Urine >= 1.030 (1.005-1.030)
[2023-02-23 12:06] LABS: Bilirubin,Urine Negative (Negative)
[2023-02-23 12:09] LABS: Amorphous Sediment,Urine 1+ /lpf; Bacteria,Urine Trace /lpf
[2023-02-23 13:17] LABS: Chloride 97 mmol/L (98-107); Sodium 139 mmol/L (136-145)
[2023-02-23 13:20] LABS: Blood Urea Nitrogen 28 mg/dl (7-17); Carbon Dioxide 25 mmol/L (22.0-30.0); Creatine Kinase 61 U/L (30-135); Estimated Glomerular Filt Rate 33 ml/min (>60); GFR (African American) 40 ML/MIN (>60)
[2023-02-23 13:21] LABS: Calcium 10.1 mg/dl (8.4-10.2); Glucose 117 mg/dl (74-100)
[2023-02-23 14:40] LABS: Eosinophils % 5 % (0-3); Lymphocytes % 14 % (10-50); Neutrophils % 78 % (42-76); Platelet Estimate Normal; RBC Morphology Normal; Total Cells Counted 100
[2023-02-23 15:05] VITALS: BP 107/73; PULSE 114; RESP 18; O2SAT 97
[2023-02-23 16:11] VITALS: BP 112/71; PULSE 98; RESP 18; O2SAT 98
== END 2023-02-23 16:11 | disposition home or self-care (01) ==
PROVIDERS: PCP Nurse Practitioner Family; Visit Provider Nurse Practitioner
DX: E86.0 Dehydration (principal); R19.7 Diarrhea, unspecified; D64.9 Anemia, unspecified; N39.0 Urinary tract infection, site not specified; B96.29 Other Escherichia coli [E. coli] as the cause of diseases classified elsewhere
CPT/HCPCS: 36415; 80048; 81001; 82550; 85007; 85014; 85018; 85048; 85049; 87086; 87088; 87186; 96360

== ENCOUNTER → 2023-02-26 10:11 | Outpatient (CLI) | payer OTHER, SELFPAY ==
[2023-02-26 10:44] LABS: Basophils # 0.1 K/mm3 (0-0.2); Basophils % 0.9 % (0.1-2.0); Eosinophils # 0.3 K/mm3 (0.0-0.4); Eosinophils % 5.1 % (0.1-12.0); Hematocrit 42.1 % (37.0-47.0); Hemoglobin 13.9 g/dL (12.2-16.2); Lymphocytes # 2.1 K/mm3 (0.7-4.5); Mean Corpuscular HGB Conc 33.1 g/dL (31.8-35.4); Mean Corpuscular Hemoglobin 31.9 pg (27.0-31.2); Mean Corpuscular Volume 96.3 fl (81-99); Mean Platelet Volume 10.7 fl (7.4-10.4); Monocytes # 0.5 K/mm3 (0.1-1.0); Neutrophils # 3.3 K/mm3 (1.8-7.8); Platelet Count 137 K/mm3 (142-424); Red Blood Count 4.37 M/mm3 (4.20-5.40); Red Cell Distribution Width 12.4 % (11.5-17.5); White Blood Count 6.3 K/mm3 (4.8-10.8)
[2023-02-26 10:58] LABS: Chloride 104 mmol/L (98-107); Sodium 140 mmol/L (136-145)
[2023-02-26 10:59] LABS: Potassium 3.9 mmoL/L (3.5-5.1)
[2023-02-26 11:01] LABS: Anion Gap 13.9 mEq/L (5-15); Blood Urea Nitrogen 13 mg/dl (7-17); Carbon Dioxide 26 mmol/L (22.0-30.0); Creatine Kinase 333 U/L (30-135); Estimated Glomerular Filt Rate 69 ml/min (>60); GFR (African American) 84 ML/MIN (>60)
[2023-02-26 11:02] LABS: Calcium 8.7 mg/dl (8.4-10.2); Glucose 84 mg/dl (74-100); Magnesium 1.9 mg/dl (1.6-2.3)
== END ==
LOC: LAB 10:12
PROVIDERS: PCP Nurse Practitioner Family; Visit Provider Nurse Practitioner
DX: E86.0 Dehydration (principal); R19.7 Diarrhea, unspecified
CPT/HCPCS: 36415; 80048; 82550; 83735; 85025

== ENCOUNTER 2024-04-08 08:12 | Outpatient (CLI) | payer OTHER, SELFPAY ==
[2024-04-08 08:36] LABS: Basophils # 0.1 K/mm3 (0-0.2); Eosinophils # 0.3 K/mm3 (0.0-0.4); Eosinophils % 3.7 % (0.1-12.0); Hematocrit 43.4 % (37.0-47.0); Hemoglobin 14.5 g/dL (12.2-16.2); Lymphocytes # 1.6 K/mm3 (0.7-4.5); Lymphocytes % 24.2 % (10-50); Mean Corpuscular HGB Conc 33.4 g/dL (31.8-35.4); Mean Corpuscular Hemoglobin 32.5 pg (27.0-31.2); Mean Corpuscular Volume 97.2 fl (81-99); Mean Platelet Volume 7.8 fl (7.4-10.4); Monocytes # 0.4 K/mm3 (0.1-1.0); Monocytes % 6.1 % (1.7-9.3); Neutrophils # 4.4 K/mm3 (1.8-7.8); Neutrophils % 64.9 % (37.0-80.0); Platelet Count 285 K/mm3 (142-424); Red Blood Count 4.46 M/mm3 (4.20-5.40); Red Cell Distribution Width 12.7 % (11.5-17.5); White Blood Count 6.8 K/mm3 (4.8-10.8)
[2024-04-08 09:04] LABS: Alanine Aminotransferase 19 U/L (12-78); Albumin Level 4.2 g/dl (3.5-5.0); Albumin/Globulin Ratio 1.6 (1.1-1.8); Alkaline Phosphatase 41 U/L (38-126); Anion Gap 11.3 mEq/L (5-15); Aspartate Amino Transferase 17 U/L (14-36); Bilirubin,Total 0.7 mg/dl (0.2-1.3); Blood Urea Nitrogen 14 mg/dl (7-17); Calcium 9.2 mg/dl (8.4-10.2); Carbon Dioxide 27 mmol/L (22.0-30.0); Chloride 106 mmol/L (98-107); Chol/HDL Ratio 4.2 (1-3.5); Cholesterol 155 mg/dl (140-200); Estimated Glomerular Filt Rate 69 ml/min (>60); GFR (African American) 83 ML/MIN (>60); Globulin 2.7 g/dL (1.3-3.2); Glucose 101 mg/dl (74-100); HDL Cholesterol 37 mg/dl (40-60); Potassium 4.3 mmoL/L (3.5-5.1); Sodium 140 mmol/L (136-145); Total Protein,Serum 6.9 g/dl (6.3-8.2); Triglycerides 94 mg/dl (30-150); VLDL Cholesterol 19 mg/dL (0-40)
[2024-04-08 09:15] LABS: Direct LDL Cholesterol 110.61 mg/dL (100-129)
[2024-04-08 09:24] LABS: Free Thyroxine Index 2.6 ug/dL (5.93-13.13); T4 (Thyroxine) 8.1 ug/dl (5.53-11.0); Triiodothryronine (T3) Uptake 32 % (23.5-40.5)
[2024-04-08 09:38] LABS: Thyroid Stimulating Hormone 1.03 uIU/mL (0.465-4.68)
[2024-04-09 08:36] LABS: FSH 11.1 mIU/mL (.); LH 4.6 mIU/mL (.)
== END 2024-04-08 23:59 | disposition home or self-care (01) ==
PROVIDERS: PCP Nurse Practitioner Family; Visit Provider Nurse Practitioner Obstetrics & Gynecology
DX: R23.2 Flushing (principal); R53.83 Other fatigue
CPT/HCPCS: 36415; 80050; 80053; 80061; 82670; 83001; 83002; 84436; 84443; 84479; 85025

== ENCOUNTER 2024-06-17 08:36 | Outpatient (CLI) | payer OTHER, SELFPAY ==
--- NOTE | 2024-06-17 08:39 | XR_ITS ---
FINAL REPORT TECHNIQUE: Chest PA & Lateral CLINICAL HISTORY: cough, chest congestion x 3 weeks COMPARISON: None FINDINGS: 2 views of the chest were performed. The heart size is normal. The mediastinum is within normal limits. There is no acute cardiopulmonary process. There are no pleural effusions. There is no pneumothorax. The bony thorax appears intact. IMPRESSION: No acute cardiopulmonary process. Reviewed, Interpreted and Dictated by Shane Gonzalez MD Transcribed by Zhanna Marquez Authenticated and . [facility]
== END 2024-06-17 23:59 ==
LOC: RAD 08:37
PROVIDERS: PCP Nurse Practitioner Family; Visit Provider Physician Assistant
DX: R05.9 Cough, unspecified (principal); R09.89 Other specified symptoms and signs involving the circulatory and respiratory systems
CPT/HCPCS: 71046